=== PATIENT | female | born 1995 | race Caucasian/White ===

== ENCOUNTER 2017-06-25 12:32 | Emergency (ER) | payer SELFPAY ==
[~2017-06-25] VITALS: Ht 160 cm; Wt 72.7 kg
[2017-06-25 12:34] VITALS: BP 132/78; TEMP 98.8
[2017-06-25 14:14] VITALS: PULSE 98
== END 2017-06-25 14:14 | disposition home or self-care (01) ==
LOC: COL.ER 12:32
DX: J02.9 Acute pharyngitis, unspecified (principal)
CPT/HCPCS: J0561; J8540